=== PATIENT | female | born 1955 | race Caucasian/White ===

== ENCOUNTER → 2019-09-13 | Outpatient (CLI) | payer MEDICARE | LOC: COL.RAD 09:15 | DX: M16.11 Unilateral primary osteoarthritis, right hip (principal); M70.61 Trochanteric bursitis, right hip; Z96.642 Presence of left artificial hip joint | CPT/HCPCS: A9503 ==

== ENCOUNTER → 2019-09-19 | Outpatient (CLI) | payer MEDICARE ==
[2019-09-19 12:30] LABS: HEMATOCRIT 40.6 % (37.0-47.0); HEMOGLOBIN 12.9 g/dl (12.5-16.0); MEAN CELL VOLUME 94 fl (80.0-100.0); MEAN CORPUSCULAR HEMOGLOBIN 30 pg (27.0-31.0); MEAN CORPUSCULAR HGB CONC 32 g/dl (33.0-37.0); MEAN PLATELET VOLUME 9.8 fl (7.4-10.4); PLATELET COUNT 248 K/mm3 (130-400); RED BLOOD COUNT 4.34 M/mm3 (4.10-5.30); REDCELL DISTRIBUTION WIDTH-CV 14.6 % (11.5-14.5)
[2019-09-19 12:49] LABS: ERYTHROCYTE SEDIMENTATION RATE 12 mm/hr (0-30)
== END ==
LOC: COL.LAB 11:54
PROVIDERS: Orthopaedic Surgery
DX: M25.551 Pain in right hip (principal); M25.552 Pain in left hip

== ENCOUNTER 2019-12-13 19:06 | Emergency (ER) | payer MEDICARE, MEDICAID ==
[~2019-12-13] VITALS: Ht 162.6 cm; Wt 63.6 kg
[~2019-12-13 19:06] MED LIST: DESYREL DIVIDO300 MG PO; NEURONTIN800 MG/TAB PO; NEXIUM 20MG20 MG PO; SEROQUEL300 MG PO; ULTRAM 50MG TAB50 MG PO; XARELTO10 MG PO
[2019-12-13 19:09] VITALS: TEMP 98.7
[2019-12-13] MEDS ORDERED: NORCO 325 MG-7.1 TAB PO (19:23)
[2019-12-13] MEDS ORDERED: ROXICODONE 55 MG/TAB PO (19:24)
[2019-12-13 20:04] LABS: MEAN CELL VOLUME 94 fl (80.0-100.0); MEAN CORPUSCULAR HGB CONC 32 g/dl (33.0-37.0); MEAN PLATELET VOLUME 9.5 fl (7.4-10.4); PLATELET COUNT 385 K/mm3 (130-400); RED BLOOD COUNT 3.27 M/mm3 (4.10-5.30); REDCELL DISTRIBUTION WIDTH-CV 13.5 % (11.5-14.5)
[2019-12-13 20:08] LABS: HEMATOCRIT 30.8 % (37.0-47.0); HEMOGLOBIN 9.8 g/dl (12.5-16.0); MEAN CORPUSCULAR HEMOGLOBIN 30 pg (27.0-31.0)
[2019-12-13 20:18] LABS: ALBUMIN 4.1 gm/dL (3.5-5.0); C-REACTIVE PROTEIN 2.4 mg/dL (0.0-0.9); CALCIUM 9.2 mg/dL (8.4-10.2); CREATININE, serum 1.11 (0.52-1.25); POTASSIUM 4.1 mmol/L (3.4-5.0); TOTAL PROTEIN 7.9 gm/dL (6.4-8.2)
[2019-12-13 20:35] LABS: ANISOCYTOSIS 1+; BAND 1 % (0-10); EOSINOPHIL 1 % (0-4); LYMPHOCYTE 27 % (20.0-51.0); NEUTROPHILS 66 % (42.0-75.2); PLATELET ESTIMATE NORMAL (NORMAL)
[2019-12-13 20:36] LABS: HYPOCHROMIA 2+
[2019-12-13 20:40] VITALS: BP 181/106; PULSE 105
[2019-12-13] MEDS ORDERED: ZOFRAN ODT4 MG PO (20:41)
--- NOTE | 2019-12-14 11:22 | NUR ---
bin worker contacted patient and patient states she is doing very well and sends thanks to the emergency room staff for helping get her pain and nausea under control. Patient stated she was up in her living room and made herself something to eat. Patient states she took her evening medications and slept all night. Patient has previously not let home health in her home as "her house is a mess". Worker stated home health would be calling and encouraged patient to let them in and they are there to help her. Patient stated she would allow home health to see her (Dominic LOO). Worker contacted Vianca at [facility] and faxed clinical update for emergency room visit. Worker attempted to call Dr [facility] chronic disease managers to update, however, they were not available.
== END 2019-12-13 21:06 | disposition home or self-care (01) ==
LOC: COL.ER 19:06
PROVIDERS: Emergency Medicine
DX: R11.2 Nausea with vomiting, unspecified (principal); F32.9 Major depressive disorder, single episode, unspecified; M79.7 Fibromyalgia; K21.9 Gastro-esophageal reflux disease without esophagitis; F17.210 Nicotine dependence, cigarettes, uncomplicated; Z96.641 Presence of right artificial hip joint; Z79.01 Long term (current) use of anticoagulants

== ENCOUNTER → 2020-02-06 | Outpatient (CLI) | payer MEDICARE, MEDICAID ==
[~2020-02-06] MED LIST changes: +NORCO 325 MG-7.1 TAB PO; +ROXICODONE 55 MG/TAB PO; +ZOFRAN ODT4 MG PO
== END ==
LOC: COL.RAD 08:48
DX: M71.052 Abscess of bursa, left hip (principal); L98.492 Non-pressure chronic ulcer of skin of other sites with fat layer exposed; Z96.641 Presence of right artificial hip joint
CPT/HCPCS: A9503

== ENCOUNTER 2020-04-04 11:27 | Emergency (ER) | payer MEDICARE, MEDICAID ==
[~2020-04-04] VITALS: Ht 165.1 cm; Wt 70.9 kg
[2020-04-04 11:36] VITALS: TEMP 97.3
[2020-04-04 12:35] LABS: BASO # 0.1 (0.0-0.2); BASO % 0.7 % (0.0-2.0); EOS # 0.1 (0.0-0.7); EOS % 1.3 % (0-4.0); GRAN # 4.7 (1.4-6.5); GRAN % 61.5 % (42.2-75.2); HEMATOCRIT 36.6 % (37.0-47.0); HEMOGLOBIN 11.9 g/dl (12.5-16.0); LYMPH # 2.2 (1.2-3.4); LYMPH % 28.9 % (20.0-51.0); MEAN CELL VOLUME 90 fl (80.0-100.0); MEAN CORPUSCULAR HEMOGLOBIN 29 pg (27.0-31.0); MEAN CORPUSCULAR HGB CONC 33 g/dl (33.0-37.0); MEAN PLATELET VOLUME 10.2 fl (7.4-10.4); MONO # 0.6 (0.1-0.6); MONO % 7.2 % (1.7-9.3); PLATELET COUNT 232 K/mm3 (130-400); RED BLOOD COUNT 4.07 M/mm3 (4.10-5.30); REDCELL DISTRIBUTION WIDTH-CV 14.9 % (11.5-14.5)
[2020-04-04 12:47] LABS: ALANINE AMINOTRANSFERASE 8 U/L (4-34); ALBUMIN 4.3 gm/dL (3.5-5.0); ALKALINE PHOSPHATASE 94 U/L (50-136); ANION GAP 10 mmol/L (7-16); AST,SGOT 22 U/L (15-37); BILIRUBIN,TOTAL 0.5 mg/dL (0.0-1.0); BLOOD UREA NITROGEN 16 mg/dL (7-17); CALCIUM 9.7 mg/dL (8.4-10.2); CARBON DIOXIDE 24 mmol/L (22-30); CHLORIDE 105 mmol/L (98-107); CREATININE, serum 1.43 (0.52-1.25); GLUCOSE 108 mg/dL (74-106); LIPASE 378 U/L (23-300); SODIUM 139 mmol/L (137-145)
[2020-04-04 12:52] LABS: C-REACTIVE PROTEIN < 0.5 mg/dL (0.0-0.9)
[2020-04-04 12:57] LABS: TROPONIN-I < 0.012 ng/mL (0.000-0.035)
[2020-04-04 14:28] VITALS: BP 203/98; PULSE 114
== END 2020-04-04 14:29 | disposition home or self-care (01) ==
LOC: COL.ER 11:27
PROVIDERS: Nurse Practitioner
DX: R06.02 Shortness of breath (principal); F17.210 Nicotine dependence, cigarettes, uncomplicated; Z20.822 Contact with and (suspected) exposure to COVID-19; Z79.01 Long term (current) use of anticoagulants
CPT/HCPCS: J2270; Q9967

== ENCOUNTER 2021-05-13 14:24 | Outpatient (RCR) | payer OTHER, MEDICAID | END 2021-05-18 | disposition still patient (30) | LOC: WSPT | DX: M54.50 Low back pain, unspecified (principal); G89.29 Other chronic pain; M25.552 Pain in left hip; M25.551 Pain in right hip ==

== ENCOUNTER 2021-06-12 10:30 | Outpatient (RCR) | payer MEDICARE, MEDICAID, OTHER | END 2021-06-18 | LOC: WSPT | DX: M54.50 Low back pain, unspecified (principal) ==

== ENCOUNTER 2021-08-14 12:45 | Outpatient (RCR) | payer OTHER, MEDICAID | END 2021-08-18 | disposition home or self-care (01) | LOC: WSPT | DX: M54.50 Low back pain, unspecified (principal) ==

== ENCOUNTER 2021-08-21 10:06 | Outpatient (RCR) | payer MEDICARE, MEDICAID, OTHER | END 2021-09-17 | LOC: WSPT | DX: M54.50 Low back pain, unspecified (principal) ==